=== PATIENT | male | born 1960 | race Caucasian/White ===

== ENCOUNTER 2016-08-23 17:43 | Emergency (ER) | payer OTHER ==
[~2016-08-23] VITALS: Ht 177.8 cm; Wt 131.0 kg
[2016-08-23 17:46] VITALS: TEMP 36.9; Ht 177.8 cm; Wt 131.0 kg
[2016-08-23] MEDS ORDERED: ASPIRIN 324 MG CHEW PO STA (18:11)
[2016-08-23 18:33] LABS: BASO % 0.6 %; BASO ABS # 0.05 K/uL (0-0.2); COMPLETE YES; EOS % 2.4 %; HEMATOCRIT 41.8 % (42-52); IG% 0.4 %; LYMPH % 31.5 %; LYMPH ABS # 2.51 K/uL (1.2-3.4); MEAN CELL VOLUME 87.3 fL (80-100); MEAN CORPUSCULAR HEMOGLOBIN 30.5 pg (25-34); MEAN CORPUSCULAR HGB CONC 34.9 g/dl (32-36); NEUT % 56.1 %; PLATELET COUNT 273 K/uL (130-400); RED BLOOD COUNT 4.79 M/uL (4.7-6.1); WHITE BLOOD COUNT 7.98 K/uL (4.8-10.8)
--- NOTE | 2016-08-23 18:34 | DIAGNOSTIC IMAGING REPORT ---
CHEST ONE VIEW PORTABLE CLINICAL HISTORY: Chest pain. COMPARISON STUDY: No previous studies for comparison. FINDINGS: Lung volumes are normal. There is no pneumothorax or pleural effusion. Linear right lower lung opacity is present. There is minimal linear left basilar opacity. Mild cardiomegaly is noted. There is no evidence of pulmonary edema. There is a possible hiatal hernia. IMPRESSION: 1. Mild bibasilar opacities which favor atelectasis. 2. Mild cardiomegaly. No evidence of pulmonary edema. 3. Lower mediastinal contour abnormality which could reflect a hiatal hernia. Electronically signed by: Julius Rowley M.D. 08/23/2016 6:32 PM Dictated Date/Time: 08/23/2016 6:31 PM
[2016-08-23 18:55] LABS: BLOOD UREA NITROGEN 13 mg/dl (7-18); BUN/CREATININE RATIO 13.3 (10-20); CALCIUM 8.8 mg/dl (8.5-10.1); CARBON DIOXIDE 22 mmol/L (21-32); CHLORIDE 111 mmol/L (98-107); GLUCOSE 112 mg/dl (70-99); POTASSIUM 3.8 mmol/L (3.5-5.1); SODIUM 144 mmol/L (136-145)
[2016-08-23 21:33] VITALS: BP 139/103; PULSE 72; O2SAT 93
--- NOTE | 2016-08-23 22:09 | EMERGENCY ROOM VISIT NOTE ---
History Report prepared by Rosamaria: Simone Camara Under the Supervision of: Dr. Mio Banegas D.O. First contact with patient: 17:55 Chief Complaint: PALPITATIONS Stated Complaint: CHEST PAIN, LIGHTHEADED History of Present Illness The patient is a 56 year old male who presents to the Emergency Room with complaints of an episode of chest pain beginning just [employer]GER. [place] airport [place] he started to have pains in the middle of his chest which is pulsatile in nature.His last palpitation was about 1 hour ago. No radiation. No arm or jaw pain. No diaphoresis. He did feel little lightheaded. With the palpitations he notes they last only minutes, and most of the times he gets lightheaded with it. His last chest tightness was 1 to 2 days ago. He notes his palpitations and chest pains are different and he gets them at different times. He describes his pain as "tightness". With the chest tightness, he notes they last only minutes and that it is relieved with coughing. The chest tightness is not worsened with exertion, but is relieved with stretching his arm. While in the ER he had mild sternal pain which was worsened upon palpitation but he notes feels better/resolves with extending his left arm. The patient also notes having headaches that do not coincide with the palpitations, and shortness of breath with exertion. He denies having any abdominal pain, or weakness in his arms or legs. He notes his pain does not radiate to his back or arms, and he notes he has had problems with his sternum in the past. The patient admits to being monitored for early diabetic and hypertensive but is not on any medications. He is not a smoker. No family history of CAD per patient and . He has had pneumonia in the past, and denies any history of asthma. 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 A total of 10 systems reviewed and were otherwise negative. Past Medical & Surgical Medical Problems: (1) History of diabetes mellitus (2) History of hypertension (3) History of pneumonia Family History No pertinent family history stated. Social History Smoking Status: Never Smoker Current/Historical Medications No Active Prescriptions or Reported Meds Allergies Coded Allergies: No Known Drug Allergy (Verified Allergy, Unknown, `, 08/23/16) Physical Exam Vital Signs Date Time Temp Pulse Resp B/P Pulse Ox O2 Delivery O2 Flow Rate FiO2 08/23/16 21:33 72 18 139/103 93 08/23/16 20:24 78 20 144/102 94 Room Air 08/23/16 19:08 79 18 157/98 93 Room Air 08/23/16 18:04 85 08/23/16 17:46 36.9 94 20 179/114 95 Room Air Pain Rating (0-10): 0 Physical Exam GENERAL: Sitting in bed, disheveled, alert, well appearing, well nourished, no distress, non-toxic EYE EXAM: normal conjunctiva OROPHARYNX: no exudate, no erythema, lips, buccal mucosa, and tongue normal and mucous membranes are moist NECK: supple, no nuchal rigidity, no adenopathy, non-tender LUNGS: Clear to auscultation. Normal chest wall mechanics HEART: no murmurs, S1 normal and S2 normal ABDOMEN: abdomen soft, non-tender, normo-active bowel sounds, no masses, no rebound or guarding. BACK: Back is symmetrical on inspection and there is no deformity, no midline tenderness, no CVA tenderness. SKIN: no rashes and no bruising UPPER EXTREMITIES: upper extremities are grossly normal. Radial pulses equal bilaterally. LOWER EXTREMITIES: No pitting edema. Calves equal bilaterally. NEURO EXAM: Normal sensorium, cranial nerves II-XII grossly intact, normal speech, no gross weakness of arms, no gross weakness of legs. No drift. Gross sensation intact. Medical Decision & Procedures ER Provider Diagnostic Interpretation: Xray results per the radiologist and my interpretation. Other results have been interpreted by the radiologist and reviewed by me. CHEST ONE VIEW PORTABLE FINDINGS: Lung volumes are normal. There is no pneumothorax or pleural effusion. Linear right lower lung opacity is present. There is minimal linear left basilar opacity. Mild cardiomegaly is noted. There is no evidence of pulmonary edema. There is a possible hiatal hernia. IMPRESSION: 1. Mild bibasilar opacities which favor atelectasis. 2. Mild cardiomegaly. No evidence of pulmonary edema. 3. Lower mediastinal contour abnormality which could reflect a hiatal hernia. Electronically signed by: Julius Rowley M.D. 08/23/2016 6:32 PM Dictated Date/Time: 08/23/2016 6:31 PM Laboratory Results 08/23/16 18:20 Red Blood Count 4.79, Mean Corpuscular Volume 87.3, Mean Corpuscular Hemoglobin 30.5, Mean Corpuscular Hemoglobin Concent 34.9, Mean Platelet Volume 10.0, Neutrophils (%) (Auto) 56.1, Lymphocytes (%) (Auto) 31.5, Monocytes (%) (Auto) 9.0, Eosinophils (%) (Auto) 2.4, Basophils (%) (Auto) 0.6, Neutrophils # (Auto) 4.48, Lymphocytes # (Auto) 2.51, Monocytes # (Auto) 0.72, Eosinophils # (Auto) 0.19, Basophils # (Auto) 0.05 08/23/16 18:20 Test 08/23/16 18:20 08/23/16 20:20 White Blood Count 7.98 K/uL (4.8-10.8) Red Blood Count 4.79 M/uL (4.7-6.1) Hemoglobin 14.6 g/dL (14.0-18.0) Hematocrit 41.8 % (42-52) Mean Corpuscular Volume 87.3 fL (80-100) Mean Corpuscular Hemoglobin 30.5 pg (25-34) Mean Corpuscular Hemoglobin Concent 34.9 g/dl (32-36) Platelet Count 273 K/uL (130-400) Mean Platelet Volume 10.0 fL (7.4-10.4) Neutrophils (%) (Auto) 56.1 % Lymphocytes (%) (Auto) 31.5 % Monocytes (%) (Auto) 9.0 % Eosinophils (%) (Auto) 2.4 % Basophils (%) (Auto) 0.6 % Neutrophils # (Auto) 4.48 K/uL (1.4-6.5) Lymphocytes # (Auto) 2.51 K/uL (1.2-3.4) Monocytes # (Auto) 0.72 K/uL (0.11-0.59) Eosinophils # (Auto) 0.19 K/uL (0-0.5) Basophils # (Auto) 0.05 K/uL (0-0.2) RDW Standard Deviation 41.7 fL (36.4-46.3) RDW Coefficient of Variation 13.0 % (11.5-14.5) Immature Granulocyte % (Auto) 0.4 % Immature Granulocyte # (Auto) 0.03 K/uL (0.00-0.02) D-Dimer < 190 ug/L FEU (0-500) Anion Gap 11.0 mmol/L (3-11) Est Creatinine Clear Calc Drug Dose 109.6 ml/min Estimated GFR () 95.7 Estimated GFR (Non- 82.6 BUN/Creatinine Ratio 13.3 (10-20) Calcium Level 8.8 mg/dl (8.5-10.1) Total Creatine Kinase 82 U/L (39-308) Creatine Kinase MB 1.2 ng/ml (0.5-3.6) Creatine Kinase MB Ratio (0-3.0) Troponin I < 0.015 ng/ml (0-0.045) Laboratory results per my review. Medications Administered Medications (Trade) Dose Ordered Sig/Ivone Route Start Time Stop Time Status Last Admin Dose Admin Aspirin (Aspirin Chew) 324 mg NOW STAT PO 08/23/16 18:11 08/23/16 18:12 DC 08/23/16 18:17 324 MG ECG Indication: chest pain Rate (beats per minute): 87 Rhythm: sinus rhythm Findings: no ectopy, other (normal axis) ED Course ED COURSE: Vital signs were reviewed and showed hypertensive. The patients medical record was reviewed The above diagnostic studies were performed and reviewed. ED treatments and interventions as stated above. 1800: The patient was evaluated in room C1B. A complete history and physical examination was performed. 1810: Ordered Aspirin 324 mg PO. 2122: I discussed the risks and benefits with the patient. He will see his PCP tomorrow. I am having care management call tomorrow to ensure his follow up appointment. 2129: Upon reevaluation, the patient is hemodynamically stable.I discussed my findings with the patient and he understands and agrees with the treatment plan. Based on the patients age, coexisting illnesses, exam and lab findings the decision to treat as an outpatient was made. The patient remained stable while under my care. The patient appeared well at the time of discharge. Medical Decision Differential diagnoses includes but is not limited to acute coronary syndrome, myocardial infarction, pericarditis, pulmonary embolus, aortic dissection, pneumonia, pneumothorax, musculoskeletal, shingles, esophageal. Patient is a 56-year-old male who presents to the ER with 2 separate types of chest pain and palpitations. He notes that he is waiting to get onto a plane to go to [place] started having palpitations. This lasted for several minutes and then resolved. During this time he felt a little lightheaded. He had no chest pain during this time. He does note that 2 days ago he had mild chest discomfort/tightness which lasted for several seconds to minutes and resolved with clearing his chest/coughing. He has had this several times in the past. None of his symptoms are exertional. While sitting in the ER he complained of mild pain in his sternum which resolved with extending his left arm and stretching. He denies any shortness of breath or any associated symptoms with this. His EKG showed no signs of ischemia. Chest x-ray was unremarkable. D- dimer was negative for blood clot and makes a dissection very unlikely. Blood pressure improved on its own. He was given aspirin. No arrhythmias on the monitor. I believe his chest pain that it occurred at the ER was clearly musculoskeletal. Uncertain of the true etiology of his palpitations. Chest pain that he had 2 days ago does appear to be respiratory in origin as when he gets this sick liters with coughing. Patient was offered admission versus abutting by the heart score which shows that he is a low risk with 3 points and following 2 negative troponins risk of a cardiac event is less than 2%. Explained the risk and benefits of this to the patient and his . Following informed decision making they agreed to follow-up with her PCP tomorrow. Discussed with Pt concerning signs and symptoms to watch out for. Pt was instructed to follow up with their PCP and discussed with the patient their option to return to the ED at anytime for persistent or worsening symptoms. The appropriate anticipatory guidance and out-patient management, including indications for return to the emergency department, were explained at length to the patient and understood. Impression Primary Impression: Heart palpitations Additional Impression: Precordial chest pain Scribe Attestation The scribe's documentation has been prepared under my direction and personally reviewed by me in its entirety. I confirm that the note above accurately reflects all work, treatment, procedures, and medical decision making performed by me. Departure Information Dispostion Home / Self-Care Prescriptions No Active Prescriptions or Reported Meds Forms WORK / SCHOOL INSTRUCTIONS, HOME CARE DOCUMENTATION FORM, IMPORTANT VISIT INFORMATION Patient Instructions Chest Pain - [facility], [facility], ED Palpitations Additional Instructions Please follow up with your primary care doctor with in the next 24 hours. Any worsening of your symptoms, please return to the ED immediately. This includes any return of chest pain, palpitations, passing out, shortness of breath, or any other concerning signs or symptoms from your standpoint. No physical activity until you're seen by your primary care doctor. You may benefit from a stress test versus Holter monitor and your primary care doctor will make this decision. Problem Qualifiers
== END 2016-08-23 21:34 | disposition home or self-care (01) ==
LOC: C.EDB 17:44 → C.EDC 21:34
DX: R00.2 Palpitations (principal); R07.2 Precordial pain

== ENCOUNTER 2019-09-29 15:01 | Inpatient (IN) ==
[2019-09-29 15:26] LABS: Appearance Urine Clear (Clear); Bacteria Urine Automated Negative (Negative); Bilirubin Urine Negative (Negative); Blood Urine 2+ (Negative); Color Urine Yellow; Epithelial Cell Urine Auto 20-30 /lpf (0-5); Glucose Urine UA Negative (Negative); Ketones Urine Trace (Negative); Leukocyte Esterase Urine Negative (Negative); Nitrite Urine Negative (Negative); Protein Urine 2+ (Negative); RBC Urine Automated >30 /hpf (0-4); Specific Gravity Urine 1.025 (1.000-1.030); Urobilinogen Urine Negative (Negative)
[2019-09-29 15:27] LABS: Hematocrit (blood only) 44.8 % (42-52); Hemoglobin 15.3 g/dL (14.0-18.0); Mean Corpuscular Hemoglobin 30.6 pg (25-34); Mean Corpuscular Hgb Conc 34.2 g/dL (32-36); Mean Corpuscular Volume 89.6 fL (80-100); Mean Platelet Volume 9.9 fL (7.4-10.4); Platelet Count 315 K/uL (130-400); RDW Standard Deviation 42.6 fL (36.4-46.3); White Blood Count 11.79 K/uL (4.8-10.8)
[2019-09-29 15:44] LABS: BUN Creatinine Ratio 12.7 (10-20); Blood Urea Nitrogen 16 mg/dl (7-18); Calcium 9.7 mg/dl (8.5-10.1); Carbon Dioxide 27 mmol/L (21-32); Chloride 106 mmol/L (98-107); Est GFR (African American) 69.5; Glucose 117 mg/dl (70-99); Potassium 4.2 mmol/L (3.5-5.1); Sodium 140 mmol/L (136-145)
[2019-09-29] MEDS ORDERED: KETOROLAC TROMETHAMINE 15 MG/ML VIAL IV STA (16:00)
[2019-09-29] MEDS ORDERED: ONDANSETRON INJ 2 MG/ML 2 ML VIAL IV STA (16:00)
[2019-09-29] MEDS ORDERED: SODIUM CHLORIDE 0.9% 1000ML 1,000 ML IV ONE (16:00)
--- NOTE | 2019-09-29 17:39 | CT Scan Report ---
ABDOMEN AND PELVIS CT WITHOUT CONTRAST CT DOSE: 1671.03 mGy.cm HISTORY: L flank pain hx kidney stones TECHNIQUE: Multiaxial CT images of the abdomen and pelvis were performed without contrast. A dose lo wering technique was utilized adhering to the principles of ALARA. COMPARISON STUDY: None. FINDINGS: A few bibasilar linear densities consistent with subsegmental atelectasis. No pneumoperiton eum. No pneumatosis. Cholecystectomy. Hepatic steatosis. The unenhanced pancreas, spleen, and adrenal glands are unremarkable. There is a 7 mm calcification within the interpolar region of the left kidn ey which appears to be cortical. No renal calculi identified. There is left perinephric edema. There is mild left hydroureteronephrosis secondary to an obstructing 6 mm stone within the left ureterovesi eric junction. The bladder is decompressed. No right-sided hydronephrosis. No retroperitoneal lymphade nopathy. Colonic diverticulosis. No evidence for diverticulitis. Suboptimal evaluation for bowel path ology due to the lack of intravenous and oral contrast. However, there is no definite bowel wall thic kening or obstruction. Normal appendix. IMPRESSION: 1. A 6 mm obstructing stone within the left ureterovesical junction resulting in mild left hydronephr osis. 2. No bowel wall thickening or obstruction. 3. Normal appendix. 4. Colonic diverticulosis. 5. Hepatic steatosis. 6. Cholecystectomy. ACT 112: Negative or not required by law. Electronically signed by: Pola Vick M.D. 09/29/2019 5:38 PM
--- NOTE | 2019-09-29 19:53 | History & Physical Report ---
Date of Service September 29, 2019 Assessment & Plan (1) Nephrolithiasis: Admit to [facility] on telemetry, Vital signs every 4 hours, Keep n.p.o. after midnight, Continue IV fluid hydration, Urology consult placed, Pain management with Toradol and morphine as needed, Antinausea medication as needed, Continue tamsulosin 0.4 mg p.o. daily as needed, DVT prophylaxis SCDs and teds since patient will possibly have procedure tomorrow by urology, Full code Present on Admission?: Yes (2) Hydronephrosis: As the above Present on Admission?: Yes (3) History of diabetes mellitus: A1c pending, Patient is not hypoglycemic agents, Accu-Cheks before meals and at bedtime, Diet-controlled Present on Admission?: Yes (4) History of hypertension: Stable in the ER, Continue lisinopril 5 mg p.o. every afternoon. (5) Heart palpitations: History of Present Illness Chief Complaint: Left flank pain Primary Care Provider: Tristan Gill The patient is a 59 years old male with past medical history of hypertension, diabetes mellitus diet-controlled and nephrolithiasis. Patient reports that he had a kidney stone of 9 mm and 4 mm which he passed while in [place] recently. Patient reports that since this morning he has severe left-sided flank pain which is colicky in nature and radiates to his groin. Patient denies fever, chills, chest pain, shortness of breath, abdominal pain, frequency, urgency. Labs are reviewed which shows WBCs of 11.79, hemoglobin 15.3, hematocrit 44.8, platelets 315. Sodium 140, potassium 4.2, chloride 106, carbon dioxide 27, anion gap 7, BUN 16, creatinine 1.28, GFR 60, glucose 117, calcium 9.7. Urine clear appearance, 2+ protein, trace ketones, urine blood 2+/30 RBCs, 20-[address] abdomen and pelvis shows a 6 mm obstructing stone within the left ureteral vesicle junction resulting in mild left hydronephrosis. No bowel wall thickening or obstruction. Normal appendix. Colonic diverticulosis. Hepatic steatosis. Cholecystectomy.The decision was made to admit pt to [facility] on tele for nephrolithiasis. Allergies Allergy/AdvReac Type Severity Reaction Status Date / Time No Known Drug Allergies Allergy Unknown ` Verified 09/29/19 16:55 Home Medications Home Medications Medication Instructions Recorded Confirmed Type lisinopril 5 mg PO QPM 09/29/19 09/29/19 History tamsulosin [Flomax] 0.4 mg PO DAILY PRN 09/29/19 09/29/19 History Past Med/Surg History Medical History Heart palpitations (Acute) History of diabetes mellitus History of hypertension Precordial chest pain (Acute) Social History Feels Safe at Home: Yes Smoking Status: Never smoker Review of Systems Review of Systems: All systems reviewed & are unremarkable except as noted in HPI & below Physical Exam Constitutional: WD/WN, vitals as above well developed and + obese Eyes: PERRL, conjunctivae normal, anicteric sclerae ENMT: external ear and nose normal, oropharynx normal Neck: trachea midline, no thyromegaly Respiratory: normal respiratory effort, lungs clear to auscultation Cardiovascular: RRR, no murmur, no edema Gastrointestinal (Abdomen): normal bowel sounds, soft, nontender, no hepatosplenomegaly Musculoskeletal: no cyanosis or clubbing, extremities motor strength 5/5 Skin: no rashes, warm and dry Neurologic: patellar DTR's 2+ bilat, sensation intact Psychiatric: A+Ox3, euthymic affect Lymphatic: no cervical or axillary lymphadenopathy Results & Data Vital Signs (Past 12 Hours) Vital Signs Temp Pulse Pulse Resp BP BP Pulse Ox 09/29/19 19:15 94 H 20 138/85 91 09/29/19 17:48 94 H 20 140/85 92 09/29/19 16:07 86 20 170/114 H 93 09/29/19 15:10 36.4 C L 99 H 18 189/110 H 95 Code Status & VTE Plan Code Status Full code VTE Prophylaxis Plan VTE Prophylaxis will be ordered: Yes PG Care Time/CCT Total # of Minutes Spent Total Time Spent with Patient: Total time spent is greater than 50% in coordination of care (as documented) at patient's floor/unit and/or counseling patient: Coding Level of Care Code 08840 Initial Inpt Care Lvl 3 Diagnoses Nephrolithiasis N20.0 Hydronephrosis N13.30 Hydronephrosis type: unspecified History of diabetes mellitus Z86.39 History of hypertension Z86.79 Heart palpitations R00.2 (1) Hydronephrosis Hydronephrosis type: unspecified Qualified Code(s): N13.30 - Unspecified hydronephrosis
--- NOTE | 2019-09-29 20:12 | Emergency Department Note ---
Entered by Cristal Fabian acting as a scribe for Parish Valenzuela History of Present Illness General Chief complaint: Kidney Stone Stated complaint: POSSIBLE KIDNEY STONE Time Seen by Provider: 09/29/19 15:55 Source: patient History of Present Illness Provider complaint: flank pain Location: back and abdomen Severity: similar to prior episodes Maximum Pain Intensity: 9 Quality: + other (flank pain) Associated symptoms: + nausea/vomiting and + other (Negative hematuria; ) The patient, who is a 59 year old male with a medical history of heart palpita tions, hypertension, kidney stones, and diabetes, presents to the Emergency Room with complaints of flank pain. The patient notes that he has a history of kidney stones. The patient informs this pain feels similar to previous episodes. The patient states that he his nauseous and vomited in the waiting room. The patient denies hematuria. The patient informs that in June a kidney stone was found in his kidney. The patient reports that during his previous episode he went to a [place] ER where he had a CAT scan. He states during that time he was diagnosed with a 4 mm kidney stone which eventually passed without urological intervention. He was also told that he had an 11 mm kidney stone located in his left kidney which is not causing him any problems and that it would be continue to be monitored by his PCP. The patient states he did what was advised and felt better after one day but is not sure if he passed stone. Home Medications Home Medications Medication Instructions Recorded Confirmed Type lisinopril 5 mg PO QPM 09/29/19 09/29/19 History tamsulosin [Flomax] 0.4 mg PO DAILY PRN 09/29/19 09/29/19 History Allergies Allergy/AdvReac Type Severity Reaction Status Date / Time No Known Drug Allergies Allergy Unknown ` Verified 09/29/19 16:55 Past Med/Surg History Medical History Heart palpitations (Acute) History of diabetes mellitus History of hypertension Precordial chest pain (Acute) Social History Feels Safe at Home: Yes Smoking Status: Never smoker Review of Systems See HPI for pertinent positives & negatives. and A total of 10 systems reviewed and were otherwise negative Physical Exam Vital Signs Vital Signs - 24 hr 09/29/19 15:10 09/29/19 16:07 09/29/19 17:48 Temperature 36.4 C L Temperature Source Oral Pulse Rate 99 H Pulse Rate [Finger] 86 94 H Respiratory Rate 18 20 20 Respiratory Effort / Characteristics Non-Labored Respiratory Depth Normal Respiratory Pattern Regular Blood Pressure 189/110 H Blood Pressure [Right Arm] 170/114 H 140/85 Blood Pressure Mean 136 Blood Pressure Mean [Right Arm] 132 103 Pulse Oximetry 95 93 92 Oxygen Delivery Method Room Air Room Air Room Air Sepsis Recent Fever Within 48 Hours No Sepsis New/Unexplained Change in Mental Status No Sepsis Action Taken by Nursing No Action Required 09/29/19 19:15 Temperature Temperature Source Pulse Rate Pulse Rate [Finger] 94 H Respiratory Rate 20 Respiratory Effort / Characteristics Respiratory Depth Respiratory Pattern Blood Pressure Blood Pressure [Right Arm] 138/85 Blood Pressure Mean Blood Pressure Mean [Right Arm] 102 Pulse Oximetry 91 Oxygen Delivery Method Room Air Sepsis Recent Fever Within 48 Hours Sepsis New/Unexplained Change in Mental Status Sepsis Action Taken by Nursing GENERAL: He is oriented to person, place, and time. He appears well-developed and well-nourished. He does not appear distressed. HENT: Exam performed. - Head: Normocephalic and atraumatic. - Right Ear: External ear normal. No mastoid tenderness. - Left Ear: External ear normal. No mastoid tenderness. - Mouth/Throat: The oropharynx is clear and moist. No trismus in the jaw. No dental abscesses or uvula swelling. No oropharyngeal exudate or tonsillar abscesses. EYES: Conjunctivae and EOM are normal. Pupils are equal, round, and reactive to light. Right eye exhibits no discharge. Left eye exhibits no discharge. No sc leral icterus. NECK: Normal range of motion. Neck supple. No JVD present. No spinous process tenderness present. No carotid bruit present. No rigidity. No tracheal deviation and normal range of motion present. No Brudzinski's sign and no Kernig's sign noted. CV: Normal rate, regular rhythm, normal heart sounds and intact distal pulses. There is no peripheral edema. Palpable radial pulses bue. PULM/CHEST: Effort normal and breath sounds normal. No respiratory distress. No stridor. He has no wheezes. He has no rales. - Chest Wall: He exhibits no tenderness. ABD: The abdomen is soft. Bowel sounds are normal. He has no distension. No mass is present. There is no tenderness. There is no rebound, no guarding, no Orellana's sign and no tenderness at McBurney's point. Rovsig negative. MUSC/SKEL: Normal range of motion. There is no peripheral edema, tenderness or deformity. Left sided CVA tenderness LYMPH: No cervical adenopathy. NEURO: He is alert and oriented to person, place, and time. He has normal strength. No cranial nerve deficit or sensory deficit. Coordination and gait normal. GCS eye subscore is 4. GCS verbal subscore is 5. GCS motor subscore is 6. Cerebellar tests wnl. SKIN: Skin is warm and dry. He is not diaphoretic. PSYCH: He has a normal mood and affect. Behavior is normal. Judgment and thought content normal. Course Course 1559: Past medical records reviewed. The patient was evaluated in room B11. A complete history and physical exam was performed. Continuous Cardiac Monitoring: An order was placed for continuous cardiac monitoring. The monitor shows a rate of 86 with sinus rhythm. 1846: Vital signs stable. Labs within normal limits. Imaging shows 6 mm obstructing stone at the left UVJ with mild hydronephrosis. I reviewed the patient's case with Dr. Mariscal, Urology. He will evaluate the patient for further management and advised to keep the patient NPO after midnight. 1900: I reviewed the patient's case with Dr. Solis, [facility] Hospitalist. She will evaluate the patient for further management. Consultations Consultation #1: I reviewed the patient's case with Dr. Marsical Urology. He will evaluate the patient for further management and advised to keep the patient NPO after midnight. Time: 18:46 Consultation #2: I reviewed the patient's case with Dr. Solis, [facility] Hospitalist. She will evaluate the patient for further management. Time: 19:00 Administered Medications Discontinued Medications Sodium Chloride (Nss 1000ml) 1,000 mls @ 999 mls/hr IV .Q1H1M ONE Stop: 09/29/19 17:00 Last Infusion: 09/29/19 17:09 Dose: 0 mls/hr Documented by: [id number] Admin: 09/29/19 16:06 Dose: 999 mls/hr Documented by: [id number] Ketorolac Tromethamine (Toradol) 15 mg IV NOW STA Stop: 09/29/19 16:01 Last Admin: 09/29/19 16:05 Dose: 15 mg Documented by: [id number] Ondansetron HCl (Zofran) 4 mg IV NOW STA Stop: 09/29/19 16:01 Last Admin: 09/29/19 16:05 Dose: 4 mg Documented by: [id number] Medical Decision Making Medical Records Attestation: I reviewed the patient's medical records. Home Medications Current Medication List: was personally reviewed by me Laboratory Data Attestation: I reviewed the patient's lab results. Result diagrams: 09/29/19 15:19 09/29/19 15:19 Lab Results 09/29/19 09/29/19 09/29/19 Range/Units 15:14 15:19 15:19 WBC 11.79 H (4.8-10.8) K/uL RBC 5.00 (4.7-6.1) M/uL Hgb 15.3 (14.0-18.0) g/dL Hct 44.8 (42-52) % MCV 89.6 (80-100) fL MCH 30.6 (25-34) pg MCHC 34.2 (32-36) g/dL RDW Std Deviation 42.6 (36.4-46.3) fL RDW Coeff of Carla 13.0 (11.5-14.5) % Plt Count 315 (130-400) K/uL MPV 9.9 (7.4-10.4) fL Sodium 140 (136-145) mmol/L Potassium 4.2 (3.5-5.1) mmol/L Chloride 106 (98-107) mmol/L Carbon Dioxide 27 (21-32) mmol/L Anion Gap 7.0 (3-11) BUN 16 (7-18) mg/dl Creatinine 1.28 (0.6-1.4) mg/dl Est Cr Clr Drug Dosing Not Reportable Est GFR ( Amer) 69.5 Est GFR (Non-Af Amer) 60.0 BUN/Creatinine Ratio 12.7 (10-20) Glucose 117 H (70-99) mg/dl Calcium 9.7 (8.5-10.1) mg/dl Urine Color Yellow Urine Appearance Clear (Clear) Urine pH 7.0 (4.5-7.5) Ur Specific [place] 1.025 (1.000-1.030) Urine Protein 2+ H (Negative) Urine Glucose (UA) Negative (Negative) Urine Ketones Trace H (Negative) Urine Blood 2+ H (Negative) Urine Nitrite Negative (Negative) Urine Bilirubin Negative (Negative) Urine Urobilinogen Negative (Negative) Ur Leukocyte Esterase Negative (Negative) Urine WBC (Auto) 1-5 (0-5) /hpf Urine RBC (Auto) >30 H (0-4) /hpf U Hyaline Cast (Auto) 1-5 (0-5) /lpf U Epithel Cells (Auto) 20-30 H (0-5) /lpf Urine Bacteria (Auto) Negative (Negative) Imaging Data Radiologist's Impression: Radiology results as stated below per my review and the radiologist's interpretation: ABDOMEN AND PELVIS CT WITHOUT CONTRAST CT DOSE: 1671.03 mGy.cm HISTORY: L flank pain hx kidney stones TECHNIQUE: Multiaxial CT images of the abdomen and pelvis were performed without contrast. A dose lowering technique was utilized adhering to the principles of ALARA. COMPARISON STUDY: None. FINDINGS: A few bibasilar linear densities consistent with subsegmental atelectasis. No pneumoperitoneum. No pneumatosis. Cholecystectomy. Hepatic steatosis. The unenhanced pancreas, spleen, and adrenal glands are unremarkable. There is a 7 mm calcification within the interpolar region of the left kidney which appears to be cortical. No renal calculi identified. There is left perinephric edema. There is mild left hydroureteronephrosis secondary to an obstructing 6 mm stone within the left ureterovesical junction. The bladder is decompressed. No right-sided hydronephrosis. No retroperitoneal lymphadenopathy. Colonic diverticulosis. No evidence for diverticulitis. Suboptimal evaluation for bowel pathology due to the lack of intravenous and oral contrast. However, there is no definite bowel wall thickening or obstruction. Normal appendix. IMPRESSION: 1. A 6 mm obstructing stone within the left ureterovesical junction resulting in mild left hydronephrosis. 2. No bowel wall thickening or obstruction. 3. Normal appendix. 4. Colonic diverticulosis. 5. Hepatic steatosis. 6. Cholecystectomy. ACT 112: Negative or not required by law. Electronically signed by: Pola Vick M.D. 09/29/2019 5:38 PM Blood Pressure Blood Pressure Findings: Normal blood pressure [facility] Narrative 1559: Past medical records reviewed. The patient was evaluated in room B11. A complete history and physical exam was performed. Continuous Cardiac Monitoring: An order was placed for continuous cardiac monitoring. The monitor shows a rate of 86 with sinus rhythm. 184: Vital signs stable. Labs within normal limits. Imaging shows 6 mm obstructing stone at the left UVJ with mild hydronephrosis. I reviewed the patient's case with Dr. Mariscal, Urology. He will evaluate the patient for further management and advised to keep the patient NPO after midnight. 190: I reviewed the patient's case with Dr. Solis, [facility] Hospitalist. She will evaluate the patient for further management. Impression & Plan Kidney stone, Hydronephrosis Discharge Plan Visit Data Chief Complaint: Kidney Stone Stated Complaint: POSSIBLE KIDNEY STONE ED Provider: Parish Valeznuela Discharge Problem: Kidney stone, Hydronephrosis Patient Disposition: Being Evaluated by Hospitalist Forms Stand Alone Forms: My [facility] Prescriptions Prescriptions: No Action lisinopril 5 mg tablet 5 mg PO QPM RF: 0 tamsulosin [Flomax] 0.4 mg capsule 0.4 mg PO DAILY PRN (Reason: urine) RF: 0 Referrals Referrals: Tristan Gill [Primary Care Provider] - Discharge Problem: Hydronephrosis Qualifiers: Hydronephrosis type: unspecified Qualified Code(s): N13.30 - Unspecified hydronephrosis The scribe's documentation has been prepared under my direction and personally reviewed by me in its entirety. I confirm that the note above accurately reflects all work, treatment, procedures, and medical decision making performed by me.
[2019-09-29] MEDS ORDERED: lisinopriL 5 MG TAB PO SCH (21:06)
[2019-09-29] MEDS ORDERED: MAGNESIUM HYDROXIDE SUSP 30 ML UDC PO PRN (21:06)
[2019-09-29] MEDS ORDERED: MoRPHine SULFATE 2 MG/ML CARP IV PRN (21:06)
[2019-09-29] MEDS ORDERED: POLYETHYLENE (MIRALAX) 17 GM PACK PO PRN (21:06)
[2019-09-29] MEDS ORDERED: ALUMINUM/MAGNESIUM SUSP 30 ML UDC PO PRN (21:06)
[2019-09-29] MEDS ORDERED: ACETAMINOPHEN 325 MG TAB PO PRN (21:06)
[2019-09-29] MEDS ORDERED: KETOROLAC TROMETHAMINE 15 MG/ML VIAL IV PRN (21:06)
[2019-09-29] MEDS ORDERED: TAMSULOSIN HCL 0.4 MG CAP PO PRN (21:06)
[2019-09-29] MEDS ORDERED: ONDANSETRON INJ 2 MG/ML 2 ML VIAL IV PRN (21:06)
[2019-09-29] MEDS ORDERED: PATIENT'S HEIGHT AND/OR WEIGHT NEEDED SCH (21:15)
[2019-09-29] MEDS: SODIUM CHLORIDE 0.9% 1000ML 1,000 ML IV SCH (22:09)
[2019-09-30] MEDS: SODIUM CHLORIDE 0.9% 1000ML 1,000 ML IV SCH (07:37)
--- NOTE | 2019-09-30 09:11 | Urology Consultation ---
Date of Consultation September 30, 2019 Assessment & Plan (1) Hydronephrosis: (2) Left ureteral stone: 59 yo male admitted with left renal colic secondary to obstructing 6 mm left UVJ stone. - Pt feeling well today - Afebrile and nontoxic - Cr and WBC are WNL today - Discussed options of MET vs intervention with ureteroscopy or ESWL - Reviewed with Dr. Lizarraga - No intervention planned today, will observe for now - Continue Tamsulosin, hydration, prn symptom control - Okay to give clear liquid diet today and make NPO at midnight - Ordered KUB today to check stone visualization - Will plan to repeat KUB in AM - Strain all urine - Will continue to follow Please consult our service urgently if patient develops fever >101F, intractable pain or nausea, as this will necessitate urgent surgical intervention. Thank you for the consultation and we will continue to monitor closely with primary service. History of Present Illness Attending Physician: Dillon Moreno MD History of Present Illness 59 yo M with PMHx of nephrolithiasis, hypertension, heart palpitations, and diabetes admitted with left renal colic secondary to 6 mm left UVJ stone and mild hydronephrosis. Pt admitted via [facility] ED on 09/29/19. Presented with left flank pain and nausea. Reported history of kidney stone. Emesis x 1 in ED. Diagnosed with 6 mm obstructing stone within left UVJ, mild hydronephrosis. Treated with IV fluids, Ketorolac and Zofran in ED and admitted for medical management. Chart review: Afebrile Cr - 1.03 (previously 1.28) WBC - 6.36 (previously 11.79) UA - 2+ blood, >30 RBCs, 2-[address] abd/pelvis demonstrated 6 mm obstructing stone within the left ureterovesical junction resulting in mild left hydronephrosis. Pt awake and sitting up in bed. States he feels good this morning. Did not pass stone. No issues overnight. Denies flank or abdominal pain today. Has not utilized any pain medication since ED. No f/c/n/v. Voiding spontaneously. Mild dysuria. No gross hematuria. Reports some frequency and urgency yesterday, but improved today. NPO since midnight. Reports recent history of nephrolithiasis x 1 (4mm), which he passed spontaneously. Has never followed with a urologist. He states that his PCP gave him rx for Tamsulosin after his recent stone to take if stone recurrence. Denies any additional acute urological concerns at this time. Allergies Allergy/AdvReac Type Severity Reaction Status Date / Time No Known Drug Allergies Allergy Unknown ` Verified 09/29/19 16:55 Home Medications Home Medications Medication Instructions Recorded Confirmed Type lisinopril 5 mg PO QPM 09/29/19 09/29/19 History tamsulosin [Flomax] 0.4 mg PO DAILY PRN 09/29/19 09/29/19 History Patient History Medical History Heart palpitations (Acute) History of diabetes mellitus History of hypertension Precordial chest pain (Acute) Social History Preferred Language: Citizen Of [place] Communication Ability: Effective Wine Pasteurizer Required: No Beliefs That Will Affect Care: None Current Living Situation: Spouse Feels Safe at Home: Yes Smoking Status: Never smoker Hx Alcohol Use: No Hx Substance Use: No Review of Systems Constitutional: as per Subjective / HPI Gastrointestinal: as per Subjective / HPI Genitourinary: + as per Subjective / HPI Physical Exam Constitutional: well developed and well nourished; no acute distress and not ill appearing Respiratory: normal respiratory effort and able to speak in complete s entences; no respiratory distress and no labored breathing Cardiovascular: Extremities: no pedal edema Gastrointestinal (Abdomen): Inspection/Auscultation: abdomen normal to inspection; abdomen not distended Percussion/Palpation: abdomen soft; abdomen nontender and no guarding Neurologic: moves all extremities and awake Psychiatric: Orientation: alert, oriented x 3 and cooperative Genitourinary: no CVA tenderness Voiding spontaneously, urine not visualized during exam Results & Data Vital Signs (Past 12 Hours) Vital Signs Temp Pulse Pulse Resp BP Pulse Ox 09/30/19 07:08 36.7 C 76 19 118/80 94 09/30/19 04:04 36.5 C 83 18 122/80 91 09/30/19 02:00 93 H 09/29/19 23:33 37.0 C 85 19 130/79 92 09/29/19 22:35 83 PG Care Time/CCT Total # of Minutes Spent Total Time Spent with Patient: Total time spent is greater than 50% in coordination of care (as documented) at patient's floor/unit and/or counseling patient: Coding Level of Care Code 11934 Inpt Consult Level 3 Diagnoses Hydronephrosis N13.30 Hydronephrosis type: unspecified Left ureteral stone N20.1 (1) Hydronephrosis Hydronephrosis type: unspecified Qualified Code(s): N13.30 - Unspecified hydronephrosis
[2019-09-30] MEDS ORDERED: TAMSULOSIN HCL 0.4 MG CAP PO ONE (09:36)
[2019-09-30 10:06] LABS: Basophils # (auto) 0.03 K/uL (0-0.2); Basophils % (auto) 0.5 %; Eosinophils # (auto) 0.09 K/uL (0-0.5); Eosinophils % (auto) 1.4 %; Hematocrit (blood only) 39.2 % (42-52); Hemoglobin 13.3 g/dL (14.0-18.0); Immature Granulocytes # (auto) 0.01 K/uL (0.00-0.02); Immature Granulocytes % (auto) 0.2 %; Lymphocytes # (auto) 1.89 K/uL (1.2-3.4); Lymphocytes % (auto) 29.7 %; Mean Corpuscular Hemoglobin 30.6 pg (25-34); Mean Corpuscular Hgb Conc 33.9 g/dL (32-36); Mean Corpuscular Volume 90.3 fL (80-100); Mean Platelet Volume 9.5 fL (7.4-10.4); Monocytes # (auto) 0.54 K/uL (0.11-0.59); Monocytes % (auto) 8.5 %; Neutrophils % (auto) 59.7 %; Platelet Count 245 K/uL (130-400); RDW Coefficient of Variation 13.1 % (11.5-14.5); RDW Standard Deviation 43.4 fL (36.4-46.3); Red Blood Count 4.34 M/uL (4.7-6.1); White Blood Count 6.36 K/uL (4.8-10.8)
[2019-09-30 10:22] LABS: BUN Creatinine Ratio 12.9 (10-20); Calcium 8.8 mg/dl (8.5-10.1); Est GFR (African American) 90.4; Potassium 4.1 mmol/L (3.5-5.1)
--- NOTE | 2019-09-30 11:13 | Electrocardiogram Report ---
Test Reason : Blood Pressure : / mmHG Vent. Rate : 078 BPM Atrial Rate : 078 BPM P-R Int : 170 ms QRS Dur : 098 ms QT Int : 376 ms P-R-T Axes : 044 -05 021 degrees QTc Int : 428 ms Normal sinus rhythm Normal ECG When compared with ECG of 23-AUG-2016 17:51, No significant change was found Confirmed by Yohan Ramirez ([id number]) on 09/30/2019 11:12:54 AM Referred By: REFERRED SELF Confirmed By:Yohan Ramirez
--- NOTE | 2019-09-30 14:08 | XRay Report ---
XR chest 1V portable, XR KUB/Abdomen 1 view HISTORY: 59 years-old Male pre-op preoperative exam. No acute chest complaints COMPARISON: CT abdomen and pelvis 09/29/2019, chest radiograph 08/23/2016 TECHNIQUE: AP view of the chest with KUB radiograph FINDINGS: CHEST: Cardiac silhouette is mildly enlarged. No pneumothorax, pleural effusion, airspace consolidation or o vert pulmonary edema. Degenerative changes of the shoulders and spine. KUB: Bowel gas pattern is nonobstructive. Previously noted 6 mm calculus of the left ureterovesicular junc tion is not definitively seen. Cholecystectomy. Left nephrolithiasis redemonstrated with calculus rachelle suring up to 7 mm. No right nephrolithiasis. Cholecystectomy. Prominent liver. No acute fracture. Deg enerative changes of the hips and spine. IMPRESSION: 1. No acute processes of the chest. 2. The previously noted calculus of the left ureterovesicular junction is not identified. 3. Left nephrolithiasis. ACT 112: Negative or not required by law. The above report was generated using voice recognition software. It may contain grammatical, syntax o r spelling errors. Electronically signed by: Akhil Daniels M.D. 09/30/2019 2:06 PM
--- NOTE | 2019-09-30 15:02 | Discharge Summary ---
Date of Service September 30, 2019 Admission HPI Per Admitting Provider The patient is a 59 years old male with past medical history of hypertension, diabetes mellitus diet-controlled and nephrolithiasis. Patient reports that he had a kidney stone of 9 mm and 4 mm which he passed while in [place] recently. Patient reports that since this morning he has severe left-sided flank pain which is colicky in nature and radiates to his groin. Patient denies fever, chills, chest pain, shortness of breath, abdominal pain, frequency, urgency. Labs are reviewed which shows WBCs of 11.79, hemoglobin 15.3, hematocrit 44.8, platelets 315. Sodium 140, potassium 4.2, chloride 106, carbon dioxide 27, anion gap 7, BUN 16, creatinine 1.28, GFR 60, glucose 117, calcium 9.7. Urine clear appearance, 2+ protein, trace ketones, urine blood 2+/30 RBCs, 20-[address] abdomen and pelvis shows a 6 mm obstructing stone within the left ureteral vesicle junction resulting in mild left hydronephrosis. No bowel wall thickening or obstruction. Normal appendix. Colonic diverticulosis. Hepatic steatosis. Cholecystectomy.The decision was made to admit pt to [facility] on tele for nephrolithiasis. Discharge Data Allergies Allergy/AdvReac Type Severity Reaction Status Date / Time No Known Drug Allergies Allergy Unknown ` Verified 09/29/19 16:55 Consultations 09/29/19 17:51 ED Decision to Admit Stat 09/29/19 18:13 ED Decision to Admit Stat 09/29/19 21:06 Consult Urology Routine Ordered Studies 09/29/19 16:01 CT abd pelvis wo con Stat Hospital Course (1) Nephrolithiasis: Admit to [facility] on telemetry, Vital signs every 4 hours, Keep n.p.o. after midnight, Continue IV fluid hydration, Urology consult placed, Pain management with Toradol and morphine as needed, Antinausea medication as needed, Continue tamsulosin 0.4 mg p.o. daily as needed, DVT prophylaxis SCDs and teds since patient will possibly have procedure tomorrow by urology, Full code (2) Hydronephrosis: As the above (3) History of diabetes mellitus: A1c pending, Patient is not hypoglycemic agents, Accu-Cheks before meals and at bedtime, Diet-controlled (4) History of hypertension: Stable in the ER, Continue lisinopril 5 mg p.o. every afternoon. (5) Heart palpitations: Discharge Plan Discharge Items Patient Disposition: Home - Self-Care Reason For Visit: NEPHROLITHIASIS,RENAL COLIC Discharge Diagnosis: Left obstructing kidney stone with mild hydronephrosis Activity: Resume your previous activity Non-emergency contact: Urologist Call non-emergency contact if: you have any medication questions and your symptoms worsen Follow-up/Referrals: Irena Elizondo CRNP [Nurse Practitioner] - (1-2 weeks) Tristan Gill [Primary Care Provider] - Diet: Regular Addtl Attending Provider Instructions: You were admitted overnight to [facility] from September 28 to 2019 due to left sided flank pain. You were diagnosed with an obstructing left kidney stone which appeared to pass without intervention overnight as per follow up X-Ray. You were reviewed by urology and recommend continuing on tamsulosin (Flomax) daily until follow up in approximately 1-2 weeks. Please also strain all urine as we would be able to analyze the stone and give dietary advice based on the stone composition. Pain and nausea medication are prescribed just as needed if your symptoms were to reoccur but were mild this could be treated at home along with drinking water per information hand outs. In addition to the pain medication prescribed you can also use ibuprofen 600mg four times a day as needed. Please return to the emergency room if your pain comes back and is persistent or not controlled with prescribed medication or you have a fever. Kind regards, Dr Dillon Moreno Pending Studies at Discharge: No Stand-Alone Forms: My [facility], Smoking Cessation Medications and DC Order Prescriptions: New ondansetron 4 mg tablet,disintegrating 4 mg PO DAILY PRN (Reason: nausea or vomiting) Qty: 10 RF: 0 oxycodone-acetaminophen [Percocet] 5-325 mg tablet 1 tab PO Q6H PRN (Reason: pain) Qty: 10 RF: 0 Continued lisinopril 5 mg tablet 5 mg PO QPM RF: 0 Changed tamsulosin [Flomax] 0.4 mg capsule 0.4 mg PO DAILY Qty: 30 RF: 0 Discharge Orders: Discharge Order (Routine); Ordered 09/30/19 Ordered By: Dillon Goldsmith/Other Patient Handouts: Kidney Stones Prevent, ED Stone Renal Passed, ED Strainer Urine Admission Data Admit Date/Time: 09/29/19 19:00 Attending Provider: Dillon Moreno Admit Provider: Inez Solis Primary Care Provider: Tristan Gill Other Providers: Inez Solis ; Fermin Mariscal Coding Diagnoses Nephrolithiasis N20.0 Hydronephrosis N13.30 Hydronephrosis type: unspecified History of diabetes mellitus Z86.39 History of hypertension Z86.79 Heart palpitations R00.2
[2019-10-01] MEDS ORDERED: TAMSULOSIN HCL 0.4 MG CAP PO SCH (09:00)
== END 2019-09-30 15:56 | disposition home or self-care (01) | DRG 694 ==
LOC: ED 15:01 → SUATTDRO 19:00 → 2W 19:00